=== PATIENT | male | born 1995 | race Caucasian/White ===

== ENCOUNTER 2024-10-22 10:36 | Emergency (ER) | payer BC ==
[~2024-10-22] VITALS: Ht 180.3 cm; Wt 71.2 kg
[2024-10-22] MEDS ORDERED: KETOROLAC TROMETHAMINE 30 MG VIAL IV ONE (10:45)
[2024-10-22] MEDS ORDERED: 0.9 % SODIUM CHLORIDE 1,000 ML IV SCH (10:45)
[2024-10-22] MEDS ORDERED: CEFTRIAXONE SODIUM 1,000 MG VIAL IV ONE (10:45)
[2024-10-22 11:06] LABS: HEMATOCRIT 41.8 % (39.0-48.0); HEMOGLOBIN 14.3 g/dL (13-16.00); MEAN CELL VOLUME 87.2 fL (80.0-100.00); MEAN CORPUSCULAR HEMOGLOBIN 29.9 pg (27.00-32.0); MEAN CORPUSCULAR HGB CONC 34.3 g/dl (32.0-36.0); PLATELET COUNT 168 K/uL (150-450); RED BLOOD COUNT 4.79 M/uL (4.00-6.00); RED CELL DISTRIBUTION WIDTH 12.8 % (11.5-14.5)
[2024-10-22 11:20] LABS: URINE APPEARANCE Clear; URINE BILIRRUBIN Negative (NEGATIVE); URINE BLOOD Negative; URINE COLOR Yellow; URINE EPITHELIAL CELLS 2.2 uL (0.0-38.8); URINE GLUCOSE Negative (NEGATIVE); URINE KETONE Negative (NEGATIVE); URINE LEUKOCYTE Negative; URINE NITRATE Negative; URINE PROTEIN Negative (NEGATIVE); URINE UROBILINOGEN 0.2 E.U./dl
[2024-10-22 11:33] LABS: URINE BACTERIA 1.2 uL (0.0-1933); URINE RBC 0.4 uL (0.0-20.8)
[2024-10-22 11:53] LABS: ALBUMIN 4.1 gm/dL (3.4-5.0); ALKALINE PHOSPHATASE 93 U/L (50-136); ALT/SGPT 25 U/L (12-78); AST/SGOT 16 U/L (15-37); BILIRUBIN TOTAL 0.65 mg/dL (0.3-1.2); BLOOD UREA NITROGEN 14 mg/dL (7-18); BUN CREA RATIO 15 (7.0-25.0); CALCIUM 9.7 mg/dL (8.5-10.1); CARBON DIOXIDE 30 mEq/L (21-32); CHLORIDE 110 mmol/L (98-107); CREATININE SERUM 0.95 mg/dL (0.70-1.30); GLOBULINA 3.2 G/DL (2.4-3.5); GLUCOSE FASTING 111 mg/dL (65-100); OSMOLALITY SERUM 271 MOSM/KG (275-295); POTASSIUM 4.07 mEq/L (3.5-5.1); SODIUM 135 mmol/L (136-145); TOTAL PROTEIN 7.3 gm/dL (6.4-8.2)
[2024-10-22] MEDS ORDERED: CEPHALEXIN500 MG PO (14:32)
[2024-10-22] MEDS ORDERED: DICLOFENAC SODI75 MG PO (14:32)
== END 2024-10-22 14:44 | disposition home or self-care (01) ==
LOC: ER 10:36
PROVIDERS: General Practice
DX: N45.1 Epididymitis (principal); N50.811 Right testicular pain